=== PATIENT | female | born 1995 | race Caucasian/White ===

== ENCOUNTER 2020-12-16 21:35 | Emergency (ER) | payer BC ==
[~2020-12-16] VITALS: Ht 160 cm; Wt 74.8 kg
[2020-12-16 21:51] VITALS: Ht 160 cm; Wt 74.8 kg
[2020-12-16 23:17] LABS: BASOPHIL % 0.7 % (0.2-1.3); PLATELET COUNT 347 x10^3mcL (179-408); RED CELL DISTRIBUTION WIDTH 13.3 % (12.3-17.7)
[2020-12-16 23:24] LABS: CALCIUM 9.8 mg/dL (8.5-10.1); CARBON DIOXIDE 26.5 mmol/L (21-32); CHLORIDE SERUM 102 mmol/L (98-107); GFR1 > 60 mL/min; GLUCOSE SERUM 114 mg/dL (74-106); POTASSIUM SERUM 4.6 mmol/L (3.5-5.1); SODIUM SERUM 136 mmol/L (136-145)
[2020-12-16 23:28] LABS: ALBUMIN 4.4 g/dL (3.4-5.0); ALKALINE PHOSPHATASE 57 U/L (46-116); ALT/SGPT 19 U/L (14-59); AST/SGOT 13 U/L (15-37); BILIRUBIN TOTAL 0.3 mg/dL (0.20-1.00); LIPASE 68 IU/L (73-393)
[2020-12-16 23:32] LABS: TOTAL PROTEIN, SERUM 8.6 g/dL (6.4-8.2)
[2020-12-17 00:24] VITALS: BP 116/66
== END 2020-12-17 00:24 | disposition home or self-care (01) ==
LOC: ED 21:35
PROVIDERS: Emergency Medicine
DX: R11.2 Nausea with vomiting, unspecified (principal)